=== PATIENT | male | born 1970 | race Hispanic/Latino ===

== ENCOUNTER → 2024-06-01 | Day surgery (SDC) | payer BC ==
[~2024-06-01] MED LIST: ATORVASTATIN CA10 MG PO; LOSARTAN POTAS100 MG PO; LOVENOX120 MG/0.8 SC; OZEMPIC1 MG/0.71; PROPOFOL IV EMULSION 10 MG/ML 20 ML VIAL ONE; PROPOFOL IV EMULSION 10 MG/ML 50 ML VIAL IV ONE; XARELTO10 MG PO
[2024-06-01] MEDS: LACTATED RINGER'S 1,000 ML ONE (07:57)
[2024-06-01] MEDS: DEXTROSE 5% 250ML 250 ML IV ONE (08:12)
[2024-06-01 11:45] VITALS: BP 126/93; PULSE 76; RESP 15; TEMP 97.3; O2SAT 99
== END | disposition home or self-care (01) ==
LOC: OR 07:29
PROVIDERS: ATTEND Internal Medicine Gastroenterology
DX: Z12.11 Encounter for screening for malignant neoplasm of colon (principal); D12.3 Benign neoplasm of transverse colon; K57.30 Diverticulosis of large intestine without perforation or abscess without bleeding; K64.8 Other hemorrhoids; Z71.3 Dietary counseling and surveillance; G47.33 Obstructive sleep apnea (adult) (pediatric); E66.01 Morbid (severe) obesity due to excess calories; I10 Essential (primary) hypertension; E11.9 Type 2 diabetes mellitus without complications; E78.5 Hyperlipidemia, unspecified; Z01.810 Encounter for preprocedural cardiovascular examination; Z79.02 Long term (current) use of antithrombotics/antiplatelets; Z79.85 Long-term (current) use of injectable non-insulin antidiabetic drugs; Z79.899 Other long term (current) drug therapy; Z68.41 Body mass index [BMI] 40.0-44.9, adult; Z87.891 Personal history of nicotine dependence
CPT/HCPCS: 45385; 88305; 93005; J2704 ×2; J7121